=== PATIENT | female | born 1955 | race Caucasian/White ===

== ENCOUNTER → 2018-10-31 13:55 | Outpatient (CLI) | payer SELFPAY ==
[2018-11-05 12:35] LABS: HPV Reflexed? NOT INDICATED
== END ==
PROVIDERS: Visit Provider Obstetrics & Gynecology
DX: Z12.4 Encounter for screening for malignant neoplasm of cervix (principal)
CPT/HCPCS: 88175; G0145

== ENCOUNTER → 2019-07-23 08:10 | Outpatient (CLI) | payer SELFPAY ==
--- NOTE | 2019-07-23 08:24 | CT_ITS ---
STUDY: CT SOFT TISSUE NECK WITH CONTRAST REASON FOR EXAM: Female, 64 years old. Parotid cancer postop RADIATION DOSAGE (If Supplied By Facility): CTDIvol = ( 22.34 ) mGy, DLP = ( 641.6 ) mGycm TECHNIQUE: The patient was scanned in a multi-detector CT scanner. High resolution transaxial imaging was performed following intravenous administration of IV Isovue 300 75. Sagittal and coronal images were reconstructed. Individualized dose optimization techniques were used for this CT. COMPARISON: July 08, 2017 FINDINGS: Postsurgical changes in the right parotid space status post resection of tumor as per clinical history. No evidence for tumor recurrence or local adenopathy.. Normal bilateral business process expert spaces. Normal bilateral parapharyngeal spaces. Normal bilateral carotid spaces. Normal bilateral sublingual and submandibular glands and spaces. Normal visualized nasopharynx. Normal retropharyngeal space. Normal perivertebral space. Normal visualized bilateral faucial tonsils. The visualized tongue, tongue base and oropharynx are normal. The visualized cervical lymph nodes (levels I-) are within normal size limits, and maintain normal morphology. There is no demonstrated solid or cystic mass lesion. There is no abnormal contrast enhancement. Normal epiglottis, bilateral vallecula and hypopharynx. The pre-epiglottic and paraglottic adipose spaces are normal. Normal visualized bilateral piriform sinuses, aryepiglottic folds, vocal cords, and arytenoid-cricoid articulations. Normal subglottic trachea. Normal bilateral lobes of the thyroid gland. Normal visualized pulmonary apices. Small mucous retention cyst in left sphenoid sinus. Cervical spine demonstrates mild spondylosis No significant change since prior exam CT/Soft Tissue Neck WITH Contrast IMPRESSION: Status post resection of right parotid tumor without evidence for focal recurrence Electronically Signed: Pradeep Elam MD at 19:29 EDT , Service support ,
[2019-07-28 11:43] LABS: CREATININE FINGERSTICK 0.65 mg/dL (0.55-1.02); EGFR FINGERSTICK > 60 mL/min (>60)
== END ==
DX: R22.1 Localized swelling, mass and lump, neck (principal); C07 Malignant neoplasm of parotid gland
CPT/HCPCS: 70491; Q9967

== ENCOUNTER → 2020-03-01 16:07 | Outpatient (CLI) | payer MEDICARE, OTHER, SELFPAY ==
[2020-03-04 05:46] LABS: HPV APTIMA, High Risk Negative (Negative)
== END ==
PROVIDERS: Visit Provider Obstetrics & Gynecology
DX: Z12.4 Encounter for screening for malignant neoplasm of cervix (principal)
CPT/HCPCS: 87624; 88175; G0145

== ENCOUNTER → 2020-11-03 07:56 | Outpatient (CLI) | payer MEDICARE, OTHER, SELFPAY ==
--- NOTE | 2020-11-03 08:15 | RAD_ITS ---
STUDY: AIR-CONTRAST UPPER JUST SERIES. REASON FOR EXAM: Female, 65 years old. Hx of heartburn -- food gets stuck in distal esoph -- no swallowing problems -- CA tumor around parotid 6 years FLUOROSCOPY TIME (if supplied): ( 1 minute ) minutes/seconds. 25 images were obtained. TECHNIQUE: The patient ingested barium. Multiple images of the esophagus, stomach and duodenum were obtained. COMPARISON: None. FINDINGS: There is evidence of a tertiary contractions of the mid and distal esophagus. There is evidence of a large sliding hiatal hernia without gastroesophageal reflux. The remainder of the stomach and duodenum are unremarkable. RAD/Upper GI w/BA Swallow IMPRESSION: Tertiary contractions of the esophagus. Large sliding hiatal hernia without gastroesophageal reflux. Electronically Signed: Jorge Mandujano, at 9:40 EST , Service support ,
== END ==
PROVIDERS: Referring Provider Surgery; Visit Provider Surgery
DX: K21.9 Gastro-esophageal reflux disease without esophagitis (principal); K44.9 Diaphragmatic hernia without obstruction or gangrene
CPT/HCPCS: 74246

== ENCOUNTER 2020-11-08 05:25 | Day surgery (SDC) | payer MEDICARE, OTHER, SELFPAY ==
[2020-11-08] VITALS (9 sets, daily range): BP systolic 118–189; BP diastolic 61–110; PULSE 82–105; RESP 16; TEMP 36.3–36.9; O2SAT 93–100; BMI 30.2
--- NOTE | 2020-11-08 | IMM_PTH ---
PATIENT: CAREN WARREN LOC: EN U#:[id number] AGE/SX: 65/F ROOM: RE11/08/[address]: Dr. Rajesh Treviño MD : 1955 BED: DIS: 11/08/2020 SPEC #: [id number] RECD: 11/15/20 09:34 STATUS: TAMMIE REKaila #: [id number] JASIEL: 11/08/20 00:[address]: Rajesh Treviño DEPT: IMMUNOHISTOCHEMISTRY RECD BY: Sarah Umanzor Tissues: A - Stomach, NOS Procedures: H Pylori (initial) PHYSICIAN & INSTITUTION [place] [id number] SPECIMEN INFORMATION: Tissue Source: A - Antral biopsy Clinical Info: GERD Specimen Number: [id number] CPT code: 58219 METHODOLOGY: Deparaffinized sections of prefer/formalin-fixed tissue or PAP/DQ stained slides are incubated with monoclonal/polyclonal antibodies/oligonucleotide probes. Localization is made via biotin free immunoperoxidase method. Appropriate controls are performed and reacted as expected. Results on target cell population are indicated in the following table: RESULTS: ANTIBODY / CLONE RESULT Block A H Pylori (polyclonal) negative These tests were developed and their performance characteristics determined by [facility]. They may not have been cleared or approved by the U.S. Food and Drug Administration. The FDA has determined that such clearance or approval is not necessary. INTERPRETATION: A. Antral biopsy: Negative for Helicobacter pylori organisms. AM:henry 11/16/2020
--- NOTE | 2020-11-08 05:52 | HP.PCM_ITS ---
Problem List (1) Hiatal hernia Status: Acute History and Physical Date of Admission: 11/08/20 Intake Visit Reasons: dysphagia Chief Complaint: dysphagia Hospital Insurance Representative Required: No Is patient in pain?: No Allergies adhesive tape Allergy (Mild, Verified 10/27/20 09:37) rash Medications ascorbic acid (vitamin C) 100 mg tablet 100 mg PO DAILY 10/27/20 [History] aspirin 81 mg tablet,delayed release 81 mg PO DAILY 10/27/20 [History Confirmed 10/27/20] calcium carbonate 500 mg calcium (1,250 mg) tablet 500 mg PO BID 10/27/20 [History Confirmed 10/27/20] cholecalciferol (vitamin D3) 125 mcg (5,000 unit) capsule 125 mcg PO DAILY 10/27/20 [History Confirmed 10/27/20] lisinopril 10 mg tablet 10 mg PO DAILY tab 10/27/20 [History Confirmed 10/27/20] omeprazole 20 mg capsule,delayed release 40 mg PO DAILY cap 10/27/20 [History Confirmed 10/27/20] vit C,E,zinc,Ny-wwnza-9-lutein-zeaxanthin 250 mg-2.5 mg-0.5 mg capsule cap PO BID cap 10/27/20 [History] zinc 50 mg tablet 50 mg PO DAILY 10/27/20 [History Confirmed 10/27/20] Is last menstrual period known: No Post menopausal: Yes Patient : No PFSH Medical History (Updated 10/27/20 @ 10:[address] Rajesh Treviño MD) Hypertension (Chronic) Hiatal hernia (Acute) Acid reflux (Acute) Back problem (Acute) Surgical History (Updated 10/27/20 @ 09:36 by Savannah Dwyer) History of (Acute) History of tonsillectomy and adenoidectomy (Acute) History of 3 sections (Acute) History of colonoscopy (Acute ~2016) History of parotidectomy (Acute) History of reversal of tubal ligation (Acute) History of tubal ligation (Acute) Family History (Updated 10/27/20 @ 09:36 by Savannah Dwyer) Other Breast cancer Social History (Updated 10/27/20 @ 13:[address] Rajesh Treviño MD) Smoking Status: Never smoker HPI HPI HPI: CAREN WARREN, is a 65 F who presents to the office today for surgical consultation regarding gastroesophageal reflux disease, intermittent food obstruction, history of large hiatal hernia. The patient's son-in-law is Indra. 65-year-old female. She claims that 2 years ago she had chest discomfort. She states that she underwent evaluation in [facility]. She demonstrates to me the report of the chest CT scan done April 10, 2018 showing a large hiatal hernia with the majority of her stomach in her chest. She states however that she was never instructed of its presence. Recently she has increased trouble with heartburn indigestion and retrosternal discomfort. She has had 2 episodes of partial esophageal food bolus obstruction. Both of them fortunately spontaneously relieved. She takes Tums as needed now for epigastric pain and her [id number] who is a general surgeon in [place] advised that she take omeprazole 40 mg daily. She believes that this is improving her condition. She has changed her diet to using more moisture and taking small food bites. 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 Her colonoscopy by report is up-to-date. She was anticipating leaving for [place] November 12, 2020 for 2 months She has had previous abdominal surgery with having had 4 daughters. 1 by spontaneous vaginal delivery and 3 by . She also appears to have had a tubal reversal as well. This involves combination of infraumbilical midline incision and Pfannenstiel incision HPI HPI HPI: CAREN WARREN, is a 65 F who presents to the office today for ROS General General: No weight change, appetite, fatigue, colon cancer, breast cancer or weakness HEENT HEENT: No difficulty swallowing, eye injury, eye surgery, swollen glands or hoarseness Endo Endocrine: No thyroid disease, diabetes mellitus, thyroid cancer, Hair loss, heat intolerance or cold intolerance Musc Musculoskeletal: Yes back problems; no arthritis, rheumatoid arthritis, gout or joint pain Cardio Cardiovascular: Yes high blood pressure; no murmur, pacemaker, heart disease, atrial fibrillation, heart attack, heart stent, palpitations, shortness of breat with exertion or chest pain Psych Psychiatric: No depression, anxiety or hearing voices Resp Respiratory: Yes shortness of breath, Yes sleep apnea, No cough, No COPD, No asthma, No emphysema, No wheezing Gastro Gastrointestinal: No abdominal pain, No nausea or vomiting, No diarrhea, No constipation, No blood in stool, Yes acid reflux, No hemorrhoids, No ulcers, No gallbladder problem, No black,tarry stools Olivier Hematologic: No blood thinners, No blood disorders, No bleeding, No anemia, No blood clots Neuro Neurologic: No weakness Exam Const General: cooperative, comfortable, no acute distress Nutritional Appearance: obese Orientation: alert, awake, oriented x3 HENMT Head: normal to inspection Eyes General: appearance normal, both eyes and all related structures Neck Neck: normal visual inspection Resp Effort & Inspection: normal respiratory effort Auscultation: clear to auscultation bilaterally Cardio Rate: regular rate Rhythm: regular rhythm Heart Sounds: no murmurs GI Palpation: soft, no hepatosplenomegaly Other: Irregular scar infraumbilical midline incision. Well-healed Pfannenstiel incision. Musc Cervical Spine: normal cervical lordosis Skin General: no rashes or lesions noted Neuro General: alert, awake Cognition: normal cognition Extrem General: no calf tenderness Psych Affect: normal affect Assessment & Plan Problems 1. Hiatal hernia K44.9 2. Gastroesophageal reflux disease, unspecified whether esophagitis present K21.9 Plan 65-year-old female who by report 2 years ago was identified as having a large hiatal hernia with significant amount of stomach within within her chest. She was not made aware of that at that time. With the recent reflux and retrosternal pain and esophageal foreign body obstruction upon review of previous testing this has come to light. It is curious because 2 years ago when she had that CT scan she was being evaluated for retrosternal discomfort and had a cardiac work-up. I propose for the patient a upper GI contrast study. I then recommend proceeding with a esophagogastroduodenoscopy with possible biopsy. Careful measurement of esophageal length will need to be pursued. Finally I recommend then further evaluation with esophageal manometry. Based upon the results of this investigation I will then be able to make better recommendations for her as to whether we can proceed with repair locally or whether she would need to have tertiary referral. In the meantime she has been highly instructed to use small bite technique with eating with chewing her food well and using plenty of moisture. She is to remain on her omeprazole therapy. She has had an opportunity to ask and have questions answered. I very much appreciate the kind opportunity of assisting with her surgical care. Copy: Dr. Ricky Treviño M.D., F.A.C.S. I have re-examined the patient. There are no clinical changes since date of exam. Procedure Criteria Procedure Type: Elective COVID Risk Discussion: The surgeon/proceduralist and patient have discussed in detail the risk of exposure to and/or potential harm posed by the COVID-19 virus with having a surgery/procedure at this time versus the risk of delaying the surgery/procedure. It is not possible to know either the risk of delaying the surgery or procedure or chance of getting an infection with perfect accuracy, but a joint decision was made between the patient and the surgeon/proceduralist to proceed at this time with the scheduled surgery/procedure as indicated on the consent form.
[2020-11-08] MEDS: Lactated Ringers 1,000 ML 100 ML IV (06:08)
--- NOTE | 2020-11-08 06:30 | EGD_PTH ---
PATIENT: CAREN WARREN LOC: EN U#:[id number] AGE/SX: 65/F ROOM: RE11/08/[address]: Dr. Rajesh Treviño MD : 1955 BED: DIS: 11/08/2020 SPEC #: [id number] RECD: 11/08/20 12:02 STATUS: TAMMIE YESY #: [id number] JASIEL: 11/08/20 06:[address]: Rajesh Treviño DEPT: SURGICAL PATHOLOGY RECD BY: Socorro Hebert Tissues: A - Gastric mucous membrane B - Gastric mucous membrane Procedures: Surgery Specimen Level IV HEADER OPERATION: EGD (MOD) PRE-OP DIAGNOSIS: Hiatal hernia, GERD TISSUE SUBMITTED: A - Antral biopsy, B - GE junction biopsy MICROSCOPIC DIAGNOSIS A. Gastric antrum, biopsy: Chronic gastritis. B. Gastroesophageal junction, biopsy: Fragments of benign gastric mucosa. No evidence of inflammation. AM:henry 11/09/2020 MICROSCOPIC DESCRIPTION Slides are reviewed. GROSS DESCRIPTION A - Received in fixative is one container labeled with the patient's name and designated antral biopsy. The specimen consists of one irregular fragment of light gutierrez soft tissue that measures 0.4 x 0.4 x 0.1 cm. The specimen is totally submitted in one cassette. B - Received in fixative is one container labeled with the patient's name and designated GE junction biopsy. The specimen consists of two irregular fragments of light gutierrez soft tissue that in aggregate measure 0.6 x 0.4 x 0.1 cm. The specimen is totally submitted in one cassette. / SJ:rg 11/08/20 TC:3 CPT: 01161 x2
--- NOTE | 2020-11-08 06:44 | OP.EGD_ITS ---
Patient Name: Lolly Hanson Procedure Date: 11/08/2020 6:12 AM Date of : 1955 Age: 65 Procedure: Upper GI endoscopy Indications: Suspected esophageal reflux, Abnormal UGI series, Hiatal hernia, For therapy of hiatal hernia Providers: Rajesh Treviño MD Referring MD: Lady Fay Medicines: Midazolam 3 mg IV, Meperidine 75 mg IV Complications: No immediate complications. Procedure: Pre-Anesthesia Assessment: - Prior to the procedure, a History and Physical was performed, and patient medications and allergies were reviewed. The patient's tolerance of previous anesthesia was also reviewed. The risks and benefits of the procedure and the sedation options and risks were discussed with the patient. All questions were answered, and informed consent was obtained. Prior Anticoagulants: The patient has taken no previous anticoagulant or antiplatelet agents. ASA Grade Assessment: II - A patient with mild systemic disease. After reviewing the risks and benefits, the patient was deemed in satisfactory condition to undergo the procedure. After obtaining informed consent, the endoscope was passed under direct vision. Throughout the procedure, the patient's blood pressure, pulse, and oxygen saturations were monitored continuously. The gastroscope was introduced through the mouth, and advanced to the second part of duodenum. The upper GI endoscopy was accomplished without difficulty. The patient tolerated the procedure well. Moderate Sedation: Moderate (conscious) sedation was personally administered by the endoscopist. The following parameters were monitored: oxygen saturation, heart rate, blood pressure, and response to care. Total physician intraservice time was 10 minutes. Scope In: 6:31:13 AM Scope Out: 6:36:34 AM Total Procedure Duration Time 0 hours 5 minutes 21 seconds Findings: The Z-line was variable and was found 34 cm from the incisors. LA Grade A (one or more mucosal breaks less than 5 mm, not extending between tops of 2 mucosal folds) esophagitis with no bleeding was found 34 cm from the incisors. Biopsies were taken with a cold forceps for histology. A large hiatal hernia was present. Diffuse mildly erythematous mucosa without bleeding was found in the gastric antrum. Biopsies were taken with a cold forceps for histology. The examined duodenum was normal. Impression: - Z-line variable, 34 cm from the incisors. - LA Grade A reflux esophagitis. Biopsied. - Large hiatal hernia. - Erythematous mucosa in the antrum. Biopsied. - Normal examined duodenum. Recommendation: - Discharge patient to home. - Resume previous diet. - Continue present medications. - Telephone my office for pathology results in 1 week. - Perform routine esophageal manometry in 2 months. - Return to my office in 2 months. Pt. is leaving for [place] and will pursue manometry upon her return Procedure Code(s): --- Professional --- 18853, Esophagogastroduodenoscopy, flexible, transoral; with biopsy, single or multiple 01489, 59, Moderate sedation services provided by the same physician or other qualified health health care analyst performing the diagnostic or therapeutic service that the sedation supports, requiring the presence of an independent trained observer to assist in the monitoring of the patient's level of consciousness and physiological status; initial 15 minutes of intraservice time, patient age 5 years or older Diagnosis Code(s): --- Professional --- K22.8, Other specified diseases of esophagus K21.0, Gastro-esophageal reflux disease with esophagitis K44.9, Diaphragmatic hernia without obstruction or gangrene K31.89, Other diseases of stomach and duodenum R93.3, Abnormal findings on diagnostic imaging of other parts of digestive tract CPT copyright 2017 [employer]. All rights reserved. The codes documented in this report are preliminary and upon sustainability specialist review may be revised to meet current compliance requirements. Rajesh Treviño MD 11/08/2020 6:43:13 AM This report has been signed electronically. Number of Addenda: 0 Note Initiated On: 11/08/2020 6:12 AM
--- NOTE | 2020-11-08 06:44 | OP.CCLET_ITS ---
11/08/2020 Bacarter Fay Re : Upper GI endoscopy procedure for Lolly Hassanr Sumeet This procedure was performed on Sunday, November 08, 2020. My impressions and recommendations are as follows: Impressions : - Z-line variable, 34 cm from the incisors. - LA Grade A reflux esophagitis. Biopsied. - Large hiatal hernia. - Erythematous mucosa in the antrum. Biopsied. - Normal examined duodenum. Recommendations : - Discharge patient to home. - Resume previous diet. - Continue present medications. - Telephone my office for pathology results in 1 week. - Perform routine esophageal manometry in 2 months. - Return to my office in 2 months. Pt. is leaving for [place] and will pursue manometry upon her return My findings are described in the full procedure note, which is enclosed. If I can be of further assistance, please feel free to contact me at Doctor phone number(s): Work: . Sincerely, Rajesh Treviño MD 11/08/2020 6:43:13 AM This report has been signed electronically.
== END 2020-11-08 07:41 | disposition home or self-care (01) ==
LOC: EN 05:25 → AC 05:26
PROVIDERS: Visit Provider Surgery
PROC: (CPT 43239; principal; 2020-11-08 06:25)
DX: K29.50 Unspecified chronic gastritis without bleeding (principal); K22.8 Other specified diseases of esophagus; K21.00 Gastro-esophageal reflux disease with esophagitis, without bleeding; K44.9 Diaphragmatic hernia without obstruction or gangrene; K31.89 Other diseases of stomach and duodenum; R93.3 Abnormal findings on diagnostic imaging of other parts of digestive tract; Z79.82 Long term (current) use of aspirin; I10 Essential (primary) hypertension
CPT/HCPCS: 43239; 87426; 88305; 88342; 99152; C9803; J7120

== ENCOUNTER 2021-01-26 07:52 | Day surgery (SDC) | payer MEDICARE, OTHER, SELFPAY ==
[2020-11-08 05:52] VITALS: BMI 30.2
[2021-01-26] MEDS: Lidocaine Jelly 2% 20 ML Syringe (URO-JET) 20 APPLIC (08:15)
[2021-01-26 08:17] VITALS: BP 159/112; PULSE 63; RESP 16; TEMP 36.1; O2SAT 97
== END 2021-01-26 09:01 | disposition home or self-care (01) ==
LOC: EN 07:53
PROVIDERS: Visit Provider Surgery
PROC: F00ZJWZ Instrumental Swallowing and Oral Function Assessment using Swallowing Equipment (ICD-10-PCS; CPT 43235; principal; 2021-01-26 07:55)
DX: R13.10 Dysphagia, unspecified (principal)
CPT/HCPCS: 91010

== ENCOUNTER 2021-05-04 10:50 | Observation (INO) | payer MEDICARE, OTHER, SELFPAY ==
[2021-04-18 14:00] VITALS: BMI 31.0
--- NOTE | 2021-04-18 14:43 | RAD_ITS ---
STUDY: X-RAY CHEST REASON FOR EXAM: Female, 66 years old. PRE OP TECHNIQUE: PA and lateral views of the chest. COMPARISON: None. FINDINGS: The lungs are clear and expanded. There is no demonstrated pleural abnormality. Normal size heart. Large hiatal hernia. Normal visualized pulmonary arteries. Normal visualized aortic arch and descending thoracic aorta. Normal visualized thoracic spine. Normal visualized ribs, clavicles, and shoulders. There is no demonstrated abnormality of the visualized soft tissue structures of the upper abdomen. RAD/Chest PA and Lateral IMPRESSION: No active pulmonary disease. Large hiatal hernia. Electronically Signed: Tomi Neumann MD at 15:34 EDT Tel , Service support ,
--- NOTE | 2021-04-18 14:44 | EKG12_ITS ---
Test Reason : PRE OP Blood Pressure : / mmHG Vent. Rate : 075 BPM Atrial Rate : 075 BPM P-R Int : 142 ms QRS Dur : 080 ms QT Int : 382 ms P-R-T Axes : 021 005 014 degrees QTc Int : 426 ms Normal sinus rhythm Normal ECG Confirmed by WARREN REYES, SHAUNA ([id number]), index editor SHARITA BENEDICT ([id number]) on 04/19/2021 10:41:46 AM Referred By: Rajesh Treviño Confirmed By:SHAUNA KELLEY MD
[2021-05-04] VITALS (14 sets, daily range): BP systolic 113–156; BP diastolic 60–98; PULSE 66–86; RESP 16–18; TEMP 36.2–36.8; O2SAT 91–97; BMI 30.5
--- NOTE | 2021-05-04 06:36 | PCM.HP.BLA ---
History and Physical Date of Admission: 05/04/21 Intake Visit Reasons: [facility] [place] Chief Complaint: update h&p Technical Training Coordinator Required: No Is patient in pain?: No Allergies adhesive tape Allergy (Mild, Verified 04/18/21 14:01) rash Medications ascorbic acid (vitamin C) 100 mg tablet 100 mg PO DAILY 10/27/20 [History Confirmed 04/18/21] aspirin 81 mg tablet,delayed release 81 mg PO DAILY 10/27/20 [History Confirmed 04/18/21] calcium carbonate 500 mg calcium (1,250 mg) tablet 500 mg PO BID 10/27/20 [History Confirmed 04/18/21] cholecalciferol (vitamin D3) 125 mcg (5,000 unit) capsule 125 mcg PO DAILY 10/27/20 [History Confirmed 04/18/21] lisinopril 10 mg tablet 10 mg PO DAILY tab 10/27/20 [History Confirmed 04/18/21] omeprazole 20 mg capsule,delayed release 40 mg PO DAILY cap 10/27/20 [History Confirmed 04/18/21] vit C,E,zinc,Pv-vtapj-9-lutein-zeaxanthin 250 mg-2.5 mg-0.5 mg capsule cap PO BID cap 10/27/20 [History Confirmed 04/18/21] zinc 50 mg tablet 50 mg PO DAILY 10/27/20 [History Confirmed 04/18/21] biotin 2,500 mcg capsule 2,500 mcg PO DAILY 04/18/21 [History Confirmed 04/18/21] PFSH Medical History Acid reflux Back problem Hiatal hernia History of COVID-19 Hypertension Surgical History History of 3 sections History of History of colonoscopy (~2015) History of parotidectomy History of reversal of tubal ligation History of tonsillectomy and adenoidectomy History of tubal ligation Family History Other Breast cancer Social History Smoking Status: Never smoker HPI HPI HPI: CAREN WARREN, is a 66 F who presents to the office today for an update History ad physical for an upcoming elective procedure. She denies recent hospitalizations or illnesses since her last visit. She denies previous myocardial infraction, stroke or blood clots. She denies side effects or complications with anesthesia. She does note constipation with anesthesia and pain medications. She is on a PPI currently. Patient has made a full recovery since having COVID in December. She is back to walking 2 1/2 miles or biking 5-6 miles. She remains very active. Patient's previous history per Dr. Treviño: CAREN WARREN, is a 66 F who presents to the office today for ongoing surgical consultation regarding her sizable hiatal hernia. Today was a 30-minute [id number] consultative appointment with the patient and her in attendance. The patient has a sizable hiatal hernia. She has had a barium esophagram and an upper GI endoscopy. She is also had manometry. The manometry was difficult as the probe got coiled up within the hernia. There is felt to be adequate esophageal motility. The patient had taken a winter break in [place] subsequent to my testing. She now returns. Unfortunately while she was in [place] she contracted COVID-19. She had chest pressure achiness fever shortness of breath. Onset was January 03, 2021. She is still in her recovery phase. She is quite fatigued. The fever is resolved but she is dyspneic. She previously was walking a mile and 1/2 to 2 miles per day and cannot come close to that range. She did have some slight weight loss of up to 10 pounds. ROS General General: No weight change, appetite, fatigue, colon cancer, breast cancer or weakness HEENT HEENT: No difficulty swallowing, eye injury, eye surgery, swollen glands or hoarseness Endo Endocrine: No thyroid disease, diabetes mellitus, thyroid cancer, Hair loss, heat intolerance or cold intolerance Skin Skin: No rash or changing moles Breast Breast: No left breast lump, right breast lump, nipple discharge, breast pain, abnormal mammogram, abnormal US or breast enlargement Musc Musculoskeletal: No back problems, arthritis, rheumatoid arthritis, gout or joint pain Cardio Cardiovascular: Yes high blood pressure; No murmur, pacemaker, heart disease, atrial fibrillation, heart attack, heart stent, palpitations, shortness of breat with exertion or chest pain Psych Psychiatric: No depression, anxiety or hearing voices Resp Respiratory: No shortness of breath, No sleep apnea, No cough, No COPD, No asthma, No emphysema and No wheezing Gastro Gastrointestinal: No abdominal pain, No nausea or vomiting, No diarrhea, No constipation, No blood in stool, Yes acid reflux, No hemorrhoids, No ulcers, No gallbladder problem and No black,tarry stools Olivier Hematologic: No blood thinners, No blood disorders, No bleeding, No anemia and No blood clots Neuro Neurologic: No system reviewed and no additional complaints, except as documented, No as per HPI, No abnormal gait, No abnormal hearing, No abnormal movements, No abnormal speech, No behavioral changes, No burning sensations, No confusion, No convulsions, No disequilibrium, No dizziness, No localized weakness, No frequent falls, No headache(s), No lack of coordination, No loss of vision, No memory loss, No numbness, No other visual disturbances, No radicular pain, No restless legs, No sensory deficit, No syncope, No tingling, No tremor(s), No weakness and No other Exam Const General: cooperative, healthy appearing, comfortable and no acute distress HENMT Head: normal to inspection Eyes General: appearance normal, both eyes and all related structures Neck Neck: normal visual inspection Neck mass: No Resp Effort & Inspection: normal respiratory effort Auscultation: clear to auscultation bilaterally Cardio Rate: regular rate Rhythm: regular rhythm GI Inspection: normal to inspection and obesity Palpation: soft Auscultation: hyperactive bowel sounds Skin General: no rashes or lesions noted Neuro General: no focal motor deficits and CN's II-XI intact bilaterally Extrem General: normal to inspection Psych Appearance: grossly normal Affect: normal affect Assessment and Plan Assessment and Plan (1) Hiatal hernia: Status: Acute Plan - Sherri GARCIA, PA-C: Dr. Treviño will plan to perform a laparoscopic repair of hiatal hernia toupet wrap. Procedure details, risks and benefits have been reviewed. Patient has had the opportunity to ask and have questions answered. Patient verbally understands and agrees with the plan. Recommend patient to start Miralax regimen 2 days prior to her procedure to assist with constipation. She may continue daily aspirin. She will obtain CXR and EKG today. Discharge instructions have been provided for the patient. (2) Acid reflux: Status: Acute Qualifiers: Esophagitis presence: esophagitis presence not specified Qualified Code(s): K21.9 - Gastro-esophageal reflux disease without esophagitis Coding Level of Care Code No Charge Diagnoses Hiatal hernia K44.9 Acid reflux K21.9 Esophagitis presence: esophagitis presence not specified Comment Update H&P 04/18/21 1523<Electronically signed by Sherri GARCIA PA-C>Date Sherri GARCIA PA-C I have re-examined the patient. There are no clinical changes since date of exam.
[2021-05-04] MEDS: Lactated Ringers 1,000 ML 100 ML IV ×2 (06:48→08:11)
[2021-05-04 06:59] LABS: Prothrombin Time (Protime)PT. 12.7 SECONDS (11.7-14.9)
[2021-05-04 07:00] LABS: Partial Thromboplast Time 36.6 Seconds (24.1-36.2)
--- NOTE | 2021-05-04 07:02 | PCM.DC ---
Discharge Instructions Diet Discharge Diet: Light diet - advance as tolerated (if you have questions about your diet instructions, please talk to you doctor.) Activity Discharge Activity: May Not Drive (for 3-5 days or while taking narcotic pain medicine.) May shower in (days): 1 Lifting Restrictions: 10 pounds Additional Activity Instructions:: Liquid diet instructions as previously provided Dressing / Incision Call your doctor if your incision/area has: Continuous Slow Oozing, Sudden Increased Bleeding, Increased Pain/ Swelling, Increased Redness and Foul Smelling Discharge Call your doctor if you observe: Fever of 101 or Higher Suture Line Care: Avoid Pulling/Pushing and Avoid Pinching/Bending Additional Dressing/Incision Instructions:: Change or remove dressing in 4 days. Leave steri-strips in place for 1 week. Follow Up Care Please Follow Up With: Rajesh Treviño MD When: Call [phone] to make an appointment to be seen in about 10 days. Test Results: Test results from this visit will be discussed in further detail at your follow-up appointment, if applicable. Please resume all of your previous medicines as prescribed. I have vigorously encouraged continued use of your incentive spirometer and mobilization. Discharge Plan Admission Admit Date/Time: 05/04/21 10:50 Attending Provider: Rajesh Treviño Discharge Orders/Prescriptions Prescriptions: No Action lisinopril 10 mg tablet 10 mg PO DAILY RF: 0 omeprazole 20 mg capsule,delayed release(DR/EC) 40 mg PO DAILY RF: 0 calcium carbonate [Calcium 500] 500 mg calcium (1,250 mg) tablet 500 mg PO BID RF: 0 aspirin [Adult Low Dose Aspirin] 81 mg tablet,delayed release (DR/EC) 81 mg PO DAILY RF: 0 cholecalciferol (vitamin D3) 125 mcg (5,000 unit) capsule 125 mcg PO DAILY RF: 0 zinc 50 mg tablet 50 mg PO DAILY RF: 0 vit C,E,zinc,Os-umudl-9-lutein-zeaxanthin 250 mg-2.5 mg-0.5 mg capsule 250-2.5-0.5 mg capsule 1 cap PO BID RF: 0 ascorbic acid (vitamin C) 100 mg tablet 100 mg tablet 100 mg PO DAILY RF: 0 biotin 2,500 mcg capsule 2,500 mcg PO DAILY RF: 0 magnesium 200 mg Tablet 200 mg PO DAILY RF: 0
[2021-05-04] MEDS: Cefazolin 2 GM in 0.9% Normal Saline 100 ML IV (07:25)
--- NOTE | 2021-05-04 07:30 | HERN_PTH ---
PATIENT: CAREN WARREN LOC: MS3 U#:[id number] AGE/SX: 66/F ROOM: AZ322 RE05/04/[address]: Dr. Rajesh Treviño MD : 1955 BED: 1 DIS: 05/05/2021 SPEC #: [id number] RECD: 05/04/21 11:28 STATUS: TAMMIE YESY #: [id number] JASIEL: 05/04/21 07:[address]: Rajesh Treviño DEPT: SURGICAL PATHOLOGY RECD BY: Naomie Muñiz Tissues: HERNIA Procedures: Surgery Specimen Level II HEADER OPERATION: Laparoscopic repair of hiatal hernia with Toupet wrap PRE-OP DIAGNOSIS: GERD TISSUE SUBMITTED: Hernia sac MICROSCOPIC DIAGNOSIS Hiatal hernia, herniorrhaphy: Fragment of fibrofatty tissue with focal mild chronic inflammation. AM:henry 05/05/2021 MICROSCOPIC DESCRIPTION Slides are reviewed. GROSS DESCRIPTION Received in fixative is one container labeled with the patient's name and designated hernia sac. The specimen consists of a piece of soft tissue measuring 6 x 5 x 0.5 cm. No mass lesion is identified. Belt Dresser sections are submitted in two cassettes. / SJ:henry 05/04/21 TC:5 CPT: 65018
[2021-05-04] MEDS: Lubricating Jelly 60 GM Tube 30 GM TOPICAL (08:13)
[2021-05-04] MEDS: Bupivacaine 0.25% 30 ML Vial ×2 (10:32→10:43)
--- NOTE | 2021-05-04 10:51 | OP.PCM_ITS ---
Problems Associated Problem List Diagnoses (1) Hiatal hernia: (2) Acid reflux: Report of Operation Date of Procedure: 05/04/21 Pre-Operative Diagnosis: Symptomatic large hiatal hernia with esophageal dysphagia and reflux Post-Operative Diagnosis: Same Surgery/Procedure Performed:: Laparoscopic hiatal herniorrhaphy with laparoscopic toupet procedure, esophagogastroduodenoscopy Description of Surgical Findings:: Timeout and informed consent was obtained. 66-year-old female was taken to the operating placed upon the table underwent general endotracheal intubation esthesia Ancef 2 g were given intravenously. She was placed in the low lithotomy position on a beanbag. The abdomen sterilely prepped draped. [place] draping was used as well. Using a 5 mm Visiport technology in the right upper abdomen angled from the umbilicus I again Visiport access under direct visualization. The abdomen was insufflated with CO2 to a pressure of 10 mmHg pressure. A 10 liner port was placed in the left upper abdomen 2 more 5 mm ports placed in the left subcostal area 5 mm incision was made in the epigastric area and a Angel retractor was placed. The liver was elevated. It was nicely viable good exposure was achieved. Using noncrushing graspers a large component of the proximal stomach was evacuated from the mediastinum. A very large hernia sac encountered. The sac was incised at the epiphrenic ligament and careful all dissection was foreign leaving peritoneum on the ela. The sac was then completely inverted tediously and carefully. The stomach was densely adherent at the spleen and short gastrics areas and was folded back on itself. Using harmonic scalpel to transect the short gastrics using hemolock clips this was quite tedious and slow. A piece of fibrillar was placed there to further assist with hemostasis. Finally I was able identify both the right and left ela I was able to get circumferential control around the esophagus the posterior vagus clearly identified and preserved with the esophagus. [place] that the right pleura had been penetrated during this large sac dissection. The esophagus however was able to be circumferentially dissected free and nicely mobilized. A [place] drain was placed around the EG junction to assist with this. I mobilized the posterior epigastric fat pad at the GE junction as well. Now had clear visualization of the crura esophagus and reduced stomach. I approximated the crura using pledgeted sutures of 0 Ethibond. 4 separate sutures were required I placed a 46 [place] bougie and felt that I had good approximation. Then I took the fundus of the stomach wrapped it behind and secured the posterior part of that wrap to the diaphragmatic crural pair. I performed a toupet procedure using a 2-0 Ethibond secure the wrap on the right to the epiphrenic ligament the esophagus and the wrap portion of the stomach and then in a running fashion to the wall of the esophagus. Performed approximately 2 and half to 3 cm length securement. I then carefully opposed the main body of the fundus on the left knee portion of the wrap carefully measuring and estimating with the bougie in place. And then secured that part of the stomach to the anterior esophageal wall and in the supine traction on the other side compared to the epiphrenic ligament the esophagus and the stomach. I did that with a 2-0 Ethibond with corporeal knot tying and then in a running fashion secured the stomach to the wall of the esophagus. Secured that and on inspection I felt that I had a very nice 270 degree wrap. All appear to be nicely intact. I then performed a esophagogastroduodenoscopy separately dictated in provation but demonstrating no leak in the wrap intact. Excess fluid nerves aspirated free. The patient was placed in Trendelenburg position and gave the PEEP and full inspiratory breaths to help evacuate any mediastinal carbon dioxide. The Angel retractor had been removed by this time and the 10 mm port site had already been closed with his simple suture of 0 Vicryl with a [place] needle. Trochars were allowed to let the carbon dioxide escape well the positive pulmonary pressure was held. And the trochars were removed. Wound edges approximated opted for Monocryl subdermal stitches. Steri-Strips Telfa OpSite dressings applied. Sponge and instrument and needle counts were reported to the surgeon to be correct. Blood loss was minimal. She tolerated the procedure well no apparent complication initiate taken to the recovery room in satisfactory condition. Specimens included the hernia sac. I did resect that hernia sac off the anterior EG junction using harmonic scalpel. It was placed in a retrieval bag and exited during the procedure. Drains none. Blood loss minimal. Rajesh Treviño M.D., F.A.C.S. Surgeon: Rajesh Treviño Type of Anesthesia: General and Local Anesthesiologist: Cesar Gonzalez
--- NOTE | 2021-05-04 12:36 | SUR.PHASEI ---
AT 11:45, ORAL AIRWAY REMOVED
[2021-05-04] MEDS: Lactated Ringers 1,000 ML 60 ML IV (12:53)
[2021-05-04] MEDS: Ketorolac 15 MG/ML Vial IV (12:54)
[2021-05-04] MEDS: 0.9% Saline Lock 10 ML Syringe IV (14:17)
[2021-05-04] MEDS: Morphine 2 MG/ML Syringe IV ×2 (14:18→16:30)
--- NOTE | 2021-05-04 15:31 | PCM.PN.SRG ---
Subjective Subjective Patient is doing well. The shoulder pain has been assisted by the Toradol. Still has retrograde sternal discomfort. No significant abdominal pain Objective Data Objective Data Vital Signs: Vital Signs Temp Pulse Resp BP Pulse Ox 98.2 F 76 18 135/71 H 95 05/04/21 13:29 05/04/21 13:29 05/04/21 13:29 05/04/21 13:29 05/04/21 13:29 Oxygen Flow Rate (L/min) 2 Oxygen Delivery Method Nasal Cannula Weight: 177 lb 14.609 oz Body Mass Index (BMI) 30.5 Intake & Output: Intake and Output for Last 24 Hours 05/02/21 05/03/21 05/04/21 23:59 23:59 23:59 Intake Total 2109 Balance 2109 Lab / Micro Data Labs: Laboratory Results - last 24 hr 05/04/21 06:45: PT 12.7, INR 1.0, APTT 36.6 H Micro: Microbiology 05/04/21 06:23 Mucosa - Nose SARS-CoV-2 Antigen (Rapid) - Final Assessment & Plan Assessment/Plan (1) Acid reflux: QUALIFIERS: Esophagitis presence: esophagitis presence not specified Qualified Code(s): K21.9 - Gastro-esophageal reflux disease without esophagitis (2) Hiatal hernia: PLAN: Patient has been vigorously encouraged to utilize her incentive spirometer. She is encouraged to ambulate. We will initiate clear liquids. She still has ongoing need for pain medication and we will observe overnight. Rajesh Treviño M.D., F.A.C.S.
--- NOTE | 2021-05-04 16:31 | CPS ---
started by nursing
[2021-05-04] MEDS: Polyethylene Glycol 3350 17 GM PACKET 34 GM PO (16:33)
[2021-05-04] MEDS: HYDROcodone Bitartrate/Apap 5/325 Tablet PO (20:53)
[2021-05-05] MEDS: Ketorolac 15 MG/ML Vial IV ×3 (01:40→14:42)
[2021-05-05 02:47] VITALS: BP 106/63; PULSE 62; RESP 18; TEMP 36.7; O2SAT 95
[2021-05-05] MEDS: HYDROcodone Bitartrate/Apap 5/325 Tablet PO ×3 (03:05→11:06)
[2021-05-05] MEDS: Lactated Ringers 1,000 ML 30 ML IV (04:55)
--- NOTE | 2021-05-05 05:34 | PCM.PN.SRG ---
Subjective Subjective Patient still notes some retrosternal discomfort. She has been working some on her incentive spirometer. She has not yet been ambulating. She is tolerating clear liquids without difficulty. Objective Data Objective Data Vital Signs: Vital Signs Temp Pulse Resp BP Pulse Ox 98.1 F 62 18 106/63 95 05/05/21 02:47 05/05/21 02:47 05/05/21 02:47 05/05/21 02:47 05/05/21 02:47 Oxygen Flow Rate (L/min) 2 Oxygen Delivery Method CPAP Weight: 177 lb 14.609 oz Body Mass Index (BMI) 30.5 Intake & Output: Intake and Output for Last 24 Hours 05/03/21 05/04/21 05/05/21 23:59 23:59 23:59 Intake Total 2770 / 2770 1362 / 1362 Balance 2770 / 2770 1362 / 1362 Lab / Micro Data Labs: Laboratory Results - last 24 hr 05/04/21 06:45: PT 12.7, INR 1.0, APTT 36.6 H Micro: Microbiology 05/04/21 06:23 Mucosa - Nose SARS-CoV-2 Antigen (Rapid) - Final Physical Exam Resp normal respiratory effort and clear to auscultation bilaterally Resp Narrative: Breath sounds are symmetric and clear bilaterally. There is reasonable effort GI GI Narrative: Soft, nontender, bowel sounds present Assessment & Plan Assessment/Plan (1) Acid reflux: QUALIFIERS: Esophagitis presence: esophagitis presence not specified Qualified Code(s): K21.9 - Gastro-esophageal reflux disease without esophagitis (2) Hiatal hernia: PLAN: I have again reviewed discharge instructions with her. She already has hardcopy detailed dietary and activity instructions at home. I have strongly encouraged the patient to initiate ambulation, I had hoped that she would have already started this. Plan discharge today. Rajesh Treviño M.D., F.A.C.S.
[2021-05-05 08:20] VITALS: BP 116/98; PULSE 72; RESP 18; TEMP 36.7; O2SAT 98
[2021-05-05] MEDS: Lisinopril 10 MG Tablet PO (08:29)
[2021-05-05] MEDS: 0.9% Saline Lock 10 ML Syringe IV ×2 (08:29→14:42)
[2021-05-05] MEDS: Pantoprazole Sodium 40 MG Tablet PO (08:29)
[2021-05-05] MEDS: Magnesium Chloride 64 MG Delay Rel.Tablet 128 MG PO (08:29)
[2021-05-05] MEDS: Polyethylene Glycol 3350 17 GM PACKET 34 GM PO (08:29)
[2021-05-05 14:40] VITALS: BP 112/71; PULSE 62; RESP 18; TEMP 36.7; O2SAT 94
== END 2021-05-05 15:15 | disposition home or self-care (01) ==
LOC: SDC 12:39 → MS3 12:39
PROVIDERS: Anesthesiology; Admitting Provider Surgery; Referring Provider Surgery; Visit Provider Surgery
PROC: (CPT 43325; principal; 2021-05-04 07:10)
DX: K44.9 Diaphragmatic hernia without obstruction or gangrene (principal); K21.9 Gastro-esophageal reflux disease without esophagitis; I10 Essential (primary) hypertension; M19.90 Unspecified osteoarthritis, unspecified site; G25.81 Restless legs syndrome; I27.20 Pulmonary hypertension, unspecified; Z86.16 Personal history of COVID-19; Z79.899 Other long term (current) drug therapy; Z79.82 Long term (current) use of aspirin; Z87.19 Personal history of other diseases of the digestive system; Z01.818 Encounter for other preprocedural examination; R53.83 Other fatigue
CPT/HCPCS: 00790; 43280; 71046; 85610; 85730; 87426; 88302; 93005; 96374; 96375; 96376; 99218; 99251; J7120; A4216; G0378; G0379; G0463; J2405

== ENCOUNTER → 2021-08-17 07:47 | Outpatient (CLI) | payer MEDICARE, OTHER, SELFPAY ==
--- NOTE | 2021-08-17 07:50 | CT_ITS ---
STUDY: CT SOFT TISSUE NECK WITH CONTRAST REASON FOR EXAM: Female, 66 years old. LUMP ON NECK RADIATION DOSAGE (If Supplied By Facility): CTDIvol = ( 17.91 ) mGy, DLP = ( 505:48 ) mGycm TECHNIQUE: The patient was scanned in a multi-detector CT scanner. High resolution transaxial imaging was performed following intravenous administration of IV 75mL Isovue-370. Sagittal and coronal images were reconstructed. Individualized dose optimization techniques were used for this CT. COMPARISON: Comparison is made with prior study 07/23/2019. FINDINGS: Surgical clips are once again seen in the right parotid space in keeping with resection of prior tumor. Normal bilateral slip filler spaces. Normal bilateral parapharyngeal spaces. Normal bilateral carotid spaces. . Normal bilateral sublingual and submandibular glands and spaces. Normal visualized nasopharynx. Normal retropharyngeal space. Normal perivertebral space. Normal visualized bilateral faucial tonsils. The visualized tongue, tongue base and oropharynx are normal. There are minimally enlarged lymph nodes of the neck, with preservation of normal tobin architecture, consistent with a reactive lymph hyperplasia. There is no demonstrated solid or cystic mass lesion. There is no abnormal contrast enhancement. Normal epiglottis, bilateral vallecula and hypopharynx. The pre-epiglottic and paraglottic adipose spaces are normal. Normal visualized bilateral piriform sinuses, aryepiglottic folds, vocal cords, and arytenoid-cricoid articulations. Normal subglottic trachea. Normal bilateral lobes of the thyroid gland. Normal visualized pulmonary apices. Normal visualized paranasal sinuses. There is multilevel degenerative changes of the cervical spine. 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 No acute abnormality is seen. Electronically Signed: Jorge Mandujano MD at 13:12 EDT , Service support ,
[2021-08-18 07:02] LABS: CREATININE FINGERSTICK 0.69 mg/dL (0.55-1.02); EGFR FINGERSTICK > 60 mL/min (>60)
== END ==
DX: C07 Malignant neoplasm of parotid gland (principal); R22.1 Localized swelling, mass and lump, neck
CPT/HCPCS: 70491; Q9967

== ENCOUNTER 2022-01-08 07:58 | Outpatient (CLI) | payer MEDICARE, OTHER, SELFPAY ==
--- NOTE | 2022-01-08 08:01 | RAD_ITS ---
STUDY: AIR CONTRAST UPPER GI AND ESOPHAGUS SERIES REASON FOR EXAM: Female, 66 years old. Z98.890 - Other specified postprocedural states FLUOROSCOPY TIME (if supplied): (150 seconds) minutes/seconds. 13 images were obtained. TECHNIQUE: SINGLE CONTRAST AND AIR CONTRAST FLUOROSCOPIC IMAGES. COMPARISON: None. FINDINGS: The cervical esophagus demonstrates normal motility without aspiration. There is no stricture or extrinsic mass effect. No intraluminal polypoid mass is identified. The thoracic esophagus distends well without stricture or mucosal fold thickening. No mucosal ulcerations are identified. There is no extrinsic mass effect. There are no diverticula. There is evidence of a gastroesophageal reflux. There is narrowing at the gastroesophageal junction. The patient ingested a 12 mm tablet of barium without any difficulty. The stomach distends well without mucosal fold thickening or mucosal ulceration. There is no intraluminal mass. The duodenal bulb is freely distensible without deformity or ulceration. The duodenal sweep is normal in position and caliber. RAD/Upper GI w/BA Swallow IMPRESSION: Narrowing at the gastroesophageal junction. Gastroesophageal reflux. The patient ingested a 12 mm tablet of barium without any difficulty. Electronically Signed: Jorge Mandujano MD at 14:18 EDT ,
== END 2022-01-08 23:59 | disposition home or self-care (01) ==
LOC: RAD 07:58
PROVIDERS: Referring Provider Surgery; Visit Provider Surgery
DX: R13.10 Dysphagia, unspecified (principal); Z98.890 Other specified postprocedural states
CPT/HCPCS: 74246

== ENCOUNTER 2022-01-15 06:57 | Outpatient (CLI) | payer MEDICARE, OTHER, SELFPAY ==
--- NOTE | 2022-01-15 06:58 | CT_ITS ---
STUDY: CT CHEST WITHOUT CONTRAST REASON FOR EXAM: Female, 66 years old. History of prior hiatal hernia repair. RADIATION DOSAGE (If Supplied By Facility): CTDIvol = ( 15.98 ) mGy, DLP = ( 636.20 ) mGycm TECHNIQUE: Transaxial imaging was performed without the administration of intravenous contrast material. Multiplanar coronal and sagittal images were reformatted. Individualized dose optimization techniques were used for this CT. COMPARISON: None. FINDINGS: The lungs are normal. There is no demonstrated pleural abnormality. Normal heart and pericardium. There are multiple small lymph nodes within the mediastinum, which are normal in size and morphology most compatible with reactive lymph hyperplasia. Normal hilar regions. Normal unenhanced pulmonary arteries. Normal aorta arch and descending thoracic aorta. There are degenerative changes of the thoracic spine. Large hiatal hernia. The patient is status post CONCEPCION fundoplication. There is thickening at the level of the gastroesophageal junction. This may represent postoperative changes although endoscopic correlation is recommended. CT/Chest without Contrast IMPRESSION: Large hiatal hernia. Post CONCEPCION fundoplication with the thickening of the gastroesophageal junction. Electronically Signed: Jorge Mandujano MD at 15:07 EDT ,
== END 2022-01-15 23:59 | disposition home or self-care (01) ==
LOC: CT 06:57
PROVIDERS: Referring Provider Surgery; Visit Provider Surgery
DX: K44.9 Diaphragmatic hernia without obstruction or gangrene (principal); K21.9 Gastro-esophageal reflux disease without esophagitis; R10.13 Epigastric pain
CPT/HCPCS: 71250

== ENCOUNTER → 2022-03-06 | Outpatient (CLI) | payer MEDICARE, OTHER, SELFPAY ==
--- NOTE | 2022-03-06 14:14 | ECHOD_ITS ---
Reason For Study: SOB Procedure This was a 2D Doppler, Color Flow transthoracic echocardiogram. Exam performed in department. Left Ventricle Normal LV size. Left ventricular systolic function is normal. The estimated ejection fraction is 60 %. Stage 1 diastolic dysfunction. No regional wall motion abnormalities noted. Right Ventricle Normal RV size. Normal systolic function. Atria Normal left atrium. Normal right atrium. Mitral Valve Normal mitral valve. Mild (1+) eccentric mitral valve insufficiency. Tricuspid Valve Normal tricuspid valve. Mild tricuspid valve insufficiency. Pulmonary artery systolic pressure is 30 mmHg. Aortic Valve Normal aortic valve. Trisinus/trileaflet aortic valve. Pulmonic Valve Normal pulmonic valve. Great Vessels Normal aortic root. The pulmonary artery is normal size. Normal inferior vena cava. Pericardium/Pleural No pericardial effusion. MMode/2D Measurements & Calculations LVIDd: 4.2 cm IVSd: 0.95 cm Ao root diam: 2.4 cm LVIDs: 2.5 cm LVPWd: 0.89 cm RVDd: 3.2 cm FS: 40.9 % LAV(MOD-bp): 33.9 ml LVAd ap4: 20.8 cm2 LVAd ap2: 22.5 cm2 LAV(MOD-bp) Indexed: 18.8 ml/m2 LVLd ap4: 6.7 cm LVLd ap2: 7.3 cm LAV(MOD-sp2): 25.4 ml EDV(MOD-sp4): 54.5 ml EDV(MOD-sp2): 58.2 ml LAV(MOD-sp4): 43.0 ml EDV(sp4-el): 55.2 ml EDV(sp2-el): 59.0 ml LVAs ap4: 9.8 cm2 LVAs ap2: 11.9 cm2 LVLs ap4: 5.4 cm LVLs ap2: 6.2 cm ESV(MOD-sp4): 16.6 ml ESV(MOD-sp2): 19.2 ml ESV(sp4-el): 15.1 ml ESV(sp2-el): 19.3 ml EF(MOD-sp4): 69.5 % EF(MOD-sp2): 67.0 % EF(sp4-el): 72.6 % SV(MOD-sp4): 37.9 ml SV(MOD-sp2): 39.0 ml SV(sp4-el): 40.1 ml LA dimension(2D): 3.8 cm LA A4 area: 16.7 cm2 RA A4 area: 11.2 cm2 Doppler Measurements & Calculations MV E max srinivasan: 89.5 cm/sec Lat Peak E' Srinivasan: 7.5 cm/sec Med Peak E' Srinivasan: 7.2 cm/sec MV A max srinivasan: 102.7 cm/sec E/E' lat: 11.9 E/E' med: 12.4 MV E/A: 0.87 Ao V2 max: 146.3 cm/sec LV V1 max: 122.4 cm/sec PA V2 max: 91.3 cm/sec Ao max P.6 mmHg LV V1 max P.0 mmHg TR max srinivasan: 262.2 cm/sec TR max P.5 mmHg ECHO/Echo Complete Interpretation Summary Normal LV size. Left ventricular systolic function is normal. The estimated ejection fraction is 60 %. Mild (1+) eccentric mitral valve insufficiency. Stage 1 diastolic dysfunction. Ordering Physician: Telly Isaac Referring Physician: Telly Isaac Performed By: Mariya Dumont RDCS
== END | disposition home or self-care (01) ==
LOC: CVS 14:12
PROVIDERS: Referring Provider Internal Medicine Cardiovascular Disease; Visit Provider Internal Medicine Cardiovascular Disease
DX: Z01.810 Encounter for preprocedural cardiovascular examination (principal)
CPT/HCPCS: 93306

== ENCOUNTER 2023-06-25 08:15 | Day surgery (SDC) | payer MEDICARE, OTHER, SELFPAY ==
[2023-06-25] VITALS (7 sets, daily range): BP systolic 91–130; BP diastolic 35–81; PULSE 64–81; RESP 14–18; TEMP 36.2–36.6; O2SAT 92–99; BMI 27.3
[2023-06-25] MEDS: Lactated Ringers 1,000 ML 15 ML IV (08:46)
--- NOTE | 2023-06-25 09:00 | PCM.HP.BLA ---
History and Physical Date of Admission: 06/25/23 Visit Reasons: SELF REFERRED COLONOSCOPY Chief Complaint: self referred colonoscopy Is patient in pain?: No Allergies bacitracin [From Cortisporin] Allergy (Intermediate, Verified 05/28/23 13:31) Rashhydrocortisone [From Cortisporin] Allergy (Intermediate, Verified 05/28/23 13:31) Rashneomycin [From Cortisporin] Allergy (Intermediate, Verified 05/28/23 13:31) Rashpolymyxin B [From Cortisporin] Allergy (Intermediate, Verified 05/28/23 13:31) Rashadhesive tape Allergy (Mild, Verified 05/28/23 13:31) rashofloxacin [From Floxin] Allergy (Unknown, Verified 05/28/23 13:31) swellingcodeine Allergy (Verified 05/28/23 13:31) PT UNSURE OF REACTION Medications ascorbic acid (vitamin C) 100 mg tablet 100 mg PO DAILY 10/27/20 [History Confirmed 05/28/23] aspirin 81 mg tablet,delayed release (Adult Low Dose Aspirin) 81 mg PO DAILY 10/27/20 [History Confirmed 05/28/23] cholecalciferol (vitamin D3) 125 mcg (5,000 unit) capsule 125 mcg PO DAILY 10/27/20 [History Confirmed 05/28/23] vit C,E,zinc,Gy-oefbl-9-lutein-zeaxanthin 250 mg-2.5 mg-0.5 mg capsule 1 cap PO BID 10/27/20 [History Confirmed 05/28/23] biotin 2,500 mcg capsule 2,500 mcg PO DAILY 04/18/21 [History Confirmed 05/28/23] magnesium 200 mg tablet 200 mg PO DAILY 04/27/21 [History Confirmed 05/28/23] calcium carbonate 600 mg calcium (1,500 mg) tablet 1,200 mg PO DAILY 03/02/22 [History Confirmed 05/28/23] lisinopril 10 mg tablet See Rx Instructions PO BID 03/05/22 [History Confirmed 05/28/23] PFSH Medical History (Updated 05/28/23 @ 13:[address] Rajesh Treviño MD) Anxiety Arthritis Back problem Cancer of parotid gland Essential hypertension Gastric reflux Hiatal hernia History of COVID-19 History of diverticulitis Hx of fracture of wrist Low iron Non-smoker PRISCILLA on CPAP Paraesophageal hernia Restless legs Wears glasses Wears hearing aid Surgical History History of 3 sections History of History of colonoscopy (~2016) History of eye surgery History of myringotomy History of parotidectomy History of reversal of tubal ligation History of tonsillectomy and adenoidectomy History of tubal ligation Status post laparoscopic Yesika fundoplication (04/2021) Family History Mother CVA (cerebral vascular accident) Myocardial infarction Cancer melanoma HypertensionFather Diabetes Alzheimer's disease HypertensionOther Breast cancer Social History Smoking Status: Never smoker alcohol intake: never substance use type: does not use HPI HPI HPI: 68-year-old female presents to discuss a colonoscopy. I assisted her on May 04, 2021 with a laparoscopic hiatal hernia repair with a toupet. This failed and she had to have it redone by Dr. Mcallister. She has intermittent symptoms of GERD. Most apparently she has had bouts of profuse diarrhea. Previous colonoscopy at least 8 years ago. She does not notice any bright red blood per rectum or melena. Her will be pursuing an umbilical herniorrhaphy. ROS General General: No weight change, appetite, fatigue, colon cancer, breast cancer or weakness HEENT HEENT: No difficulty swallowing, eye injury, eye surgery, swollen glands or hoarseness Endo Endocrine: No thyroid disease, diabetes mellitus, thyroid cancer, Hair loss, heat intolerance or cold intolerance Skin Skin: No rash or changing moles Musc Musculoskeletal: No back problems, arthritis, rheumatoid arthritis, gout or joint pain Cardio Cardiovascular: Yes high blood pressure; No murmur, pacemaker, heart disease, atrial fibrillation, heart attack, heart stent, palpitations, shortness of breat with exertion or chest pain Psych Psychiatric: No depression, anxiety or hearing voices Resp Respiratory: No shortness of breath, No sleep apnea, No cough, No COPD, No asthma, No emphysema and No wheezing Gastro Gastrointestinal: Yes abdominal pain, No nausea or vomiting, Yes diarrhea, No constipation, No blood in stool, Yes acid reflux, No hemorrhoids, No ulcers, No gallbladder problem and No black,tarry stools Olivier Hematologic: No blood thinners, No blood disorders, No bleeding, No anemia and No blood clots Neuro Neurologic: No system reviewed and no additional complaints, except as documented, No as per HPI, No abnormal gait, No abnormal hearing, No abnormal movements, No abnormal speech, No behavioral changes, No burning sensations, No confusion, No convulsions, No disequilibrium, No dizziness, No localized weakness, No frequent falls, No headache(s), No lack of coordination, No loss of vision, No memory loss, No numbness, No other visual disturbances, No radicular pain, No restless legs, No sensory deficit, No syncope, No tingling, No tremor(s), No weakness and No other Exam Const General: cooperative, healthy appearing, comfortable and no acute distress Nutritional Appearance: average body habitus [facility] Head: normal to inspection Eyes General: appearance normal, both eyes and all related structures Neck Neck: normal visual inspection Chest Chest palpation & inspection: normal inspection of the chest Resp Effort & Inspection: normal respiratory effort Auscultation: clear to auscultation bilaterally Cardio Rate: regular rate Rhythm: regular rhythm GI Palpation: soft and no hepatosplenomegaly Musc Cervical Spine: normal cervical lordosis Skin General: no rashes or lesions noted Neuro General: patient alert, patient awake and patient oriented x3 Extrem General: no calf tenderness Psych Appearance: grossly normal Assessment and Plan Assessment and Plan (1) Paraesophageal hernia: Status: Acute (2) Gastroesophageal reflux disease due to diaphragmatic hernia: Status: Chronic (3) Diarrhea: Status: Acute Qualifiers: Diarrhea type: unspecified type Qualified Code(s): R19.7 - Diarrhea, unspecified Plan: Patient's had a previous laparoscopic repair and then had to have that redone. She currently has intermittent GERD symptoms. In addition she had some profuse abdominal bloating and pain and diarrhea. She has not had a colonoscopy for 8 years. I recommend to her a combined esophagogastroduodenoscopy with possible biopsy and very careful inspection of her laparoscopic toupet. I recommend to her a colonoscopy with possible biopsy or polypectomy. She is aware of technique, benefit, risk, alternatives. She has had an opportunity to ask and have questions answered. We will schedule procedure at her discretion. I appreciate the opportunity of assisting with her surgical care. Rajesh Treviño M.D., Ra. I have examined the patient and the H&P has been reviewed. There are no clinical changes since date of exam. Rajesh Treviño M.D., F.Gerson.Manisha.S.
--- NOTE | 2023-06-25 09:15 | IMM_PTH ---
PATIENT: CAREN WARREN LOC: EN U#:[id number] AGE/SX: 68/F ROOM: RE06/25/[address]: Dr. Rajesh Treviño MD : 1955 BED: DIS: 06/25/2023 SPEC #: [id number] RECD: 06/26/23 14:15 STATUS: TAMMIE YESY #: [id number] JASIEL: 06/25/23 09:[address]: Rajesh Treviño DEPT: IMMUNOHISTOCHEMISTRY RECD BY: Sarah Umanzor Tissues: A - Stomach, NOS Procedures: H Pylori (initial) PHYSICIAN & INSTITUTION [place] [id number] SPECIMEN INFORMATION: Tissue Source: A - Antrum Clinical Info: Paraesophageal hernia, GERD, diarrhea Specimen Number: [id number] CPT code: 34950 METHODOLOGY: Deparaffinized sections of prefer/formalin-fixed tissue or PAP/DQ stained slides are incubated with monoclonal/polyclonal antibodies/oligonucleotide probes. Localization is made via biotin free immunoperoxidase method. Appropriate controls are performed and reacted as expected. Results on target cell population are indicated in the following table: RESULTS: ANTIBODY / CLONE RESULT Block A H Pylori (polyclonal) negative These tests were developed and their performance characteristics determined by [facility]. They may not have been cleared or approved by the U.S. Food and Drug Administration. The FDA has determined that such clearance or approval is not necessary. The above immunohistochemical/dualISH markers are ordered and reviewed by the Pathologist. INTERPRETATION: A. Antrum, biopsy: Negative for Helicobacter pylori organisms. FILIPPO:henry 06/27/2023
--- NOTE | 2023-06-25 09:15 | COLBX_PTH ---
PATIENT: CAREN WARREN LOC: EN U#:[id number] AGE/SX: 68/F ROOM: RE06/25/[address]: Dr. Rajesh Treviño MD : 1955 BED: DIS: 06/25/2023 SPEC #: [id number] RECD: 06/25/23 14:21 STATUS: TAMMIE HAYWARD #: [id number] JASIEL: 06/25/23 09:[address]: Rajesh Treviño DEPT: SURGICAL PATHOLOGY RECD BY: Naomie Muñiz Tissues: A - COLON BIOPSY B - Esophagus, NOS C - Esophagus, NOS D - COLON BIOPSY Procedures: Surgery Specimen Level IV HEADER OPERATION: Colonoscopy, EGD PRE-OP DIAGNOSIS: Paraesophageal hernia, GERD, diarrhea TISSUE SUBMITTED: A - Antrum biopsy for H. pylori and path, B - Distal esophagus biopsy, C - Mid esophagus biopsy, D - Random colonic biopsy MICROSCOPIC DIAGNOSIS A. Antrum, biopsy: Mild gastritis. See microscopic description and comment. B. Distal esophagus, biopsy: Fragments of benign squamous epithelium. C. Mid esophagus, biopsy: A fragment of benign squamous epithelium. D. Colon, random biopsy: Fragments of colonic mucosa, no pathologic diagnosis. SJ:rg 06/27/2023 COMMENT A. The results of immunohistochemistry for Helicobacter pylori will be reported separately ([id number]). MICROSCOPIC DESCRIPTION Slides are reviewed. A. The specimen shows fragments of gastric mucosa with chronic inflammatory cell infiltrates in the lamina propria consisting of lymphocytes and plasma cells, consistent with mild chronic gastritis. GROSS DESCRIPTION A - Received in fixative is one container labeled with the patient's name and designated antrum biopsy. The specimen consists of one irregular fragment of light gutierrez soft tissue that measures 0.3 x 0.3 x 0.1 cm. The specimen is totally submitted in one cassette. B - Received in fixative is one container labeled with the patient's name and designated distal esophagus biopsy. The specimen consists of multiple irregular fragments of light gutierrez soft tissue that in aggregate measure 0.6 x 0.3 x 0.1 cm. The specimen is totally submitted in one cassette. C - Received in fixative is one container labeled with the patient's name and designated mid esophagus biopsy. The specimen consists of one irregular fragment of light gutierrez soft tissue that measures 0.2 x 0.2 x 0.1 cm. The specimen is totally submitted in one cassette. D - Received in fixative is one container labeled with the patient's name and designated random colonic biopsy. The specimen consists of multiple irregular fragments of light gutierrez soft tissue that in aggregate measure 1.5 x 0.4 x 0.1 cm. The specimen is totally submitted in one cassette. / SJ:rg 06/26/2023 TC:3 CPT: 23084 x4
--- NOTE | 2023-06-25 10:29 | OP.EGD_ITS ---
Patient Name: Lolly Hanson Procedure Date: 06/25/2023 9:43 AM Date of : 1955 Age: 68 Procedure: Upper GI endoscopy Indications: Heartburn Providers: Rajesh Treviño MD Medicines: See the Anesthesia note for documentation of the administered medications Complications: No immediate complications. Procedure: Pre-Anesthesia Assessment: - Prior to the procedure, a History and Physical was performed, and patient medications and allergies were reviewed. The patient's tolerance of previous anesthesia was also reviewed. The risks and benefits of the procedure and the sedation options and risks were discussed with the patient. All questions were answered, and informed consent was obtained. Prior Anticoagulants: The patient has taken no anticoagulant or antiplatelet agents. ASA Grade Assessment: II - A patient with mild systemic disease. After reviewing the risks and benefits, the patient was deemed in satisfactory condition to undergo the procedure. After obtaining informed consent, the endoscope was passed under direct vision. Throughout the procedure, the patient's blood pressure, pulse, and oxygen saturations were monitored continuously. The colonoscope was introduced through the mouth, and advanced to the second part of duodenum. The upper GI endoscopy was accomplished without difficulty. The patient tolerated the procedure well. Scope In: 9:55:36 AM Scope Out: 10:01:36 AM Total Procedure Duration Time 0 hours 6 minutes 0 seconds Findings: The lumen of the middle third of the esophagus and lower third of the esophagus was mildly dilated. Biopsies were taken with a cold forceps for histology. Diffuse moderate inflammation characterized by linear erosions was found in the gastric antrum. Biopsies were taken with a cold forceps for histology. Evidence of a Toupet fundoplication was found in the gastric fundus. The wrap appeared loose. The examined duodenum was normal. Impression: - Dilation in the middle third of the esophagus and in the lower third of the esophagus. Biopsied. - Acute chronic gastritis. Biopsied. - A Toupet fundoplication was found. The wrap appears loose. - Normal examined duodenum. Recommendation: - Discharge patient to home. - Resume previous diet. - Continue present medications. - Telephone my office for pathology results in 1 week. Office appears mildly dilated. EG junction at approximately 38 cm. The wrap appears intact just slightly loose. No clinical evidence of reflux changes on the distal esophagus. Active gastritis identified. The patient is not currently on acid reducing medications. Will await biopsy results prior to prescribing potential treatment. I do not recommend any additional redo surgery on her wrap as the distal esophagus actually appears to be quite unremarkable. Procedure Code(s): --- Professional --- 01485, Esophagogastroduodenoscopy, flexible, transoral; with biopsy, single or multiple Diagnosis Code(s): --- Professional --- K22.89, Other specified disease of esophagus K29.00, Acute gastritis without bleeding K29.50, Unspecified chronic gastritis without bleeding Z98.890, Other specified postprocedural states R12, Heartburn CPT copyright 2021 [employer]. All rights reserved. The codes documented in this report are preliminary and upon reconciliation clerk review may be revised to meet current compliance requirements. Rajesh Treviño MD 06/25/2023 10:29:01 AM This report has been signed electronically. Number of Addenda: 0 Note Initiated On: 06/25/2023 9:43 AM
--- NOTE | 2023-06-25 10:32 | OP.COLON_ITS ---
Patient Name: Lolly Hanson Procedure Date: 06/25/2023 10:01 AM Date of : 1955 Age: 68 Procedure: Colonoscopy Indications: Generalized abdominal pain Providers: Rajesh Treviño MD Patient Profile: Last Colonoscopy: date unknown. Complications: No immediate complications. Procedure: Pre-Anesthesia Assessment: - Prior to the procedure, a History and Physical was performed, and patient medications and allergies were reviewed. The patient's tolerance of previous anesthesia was also reviewed. The risks and benefits of the procedure and the sedation options and risks were discussed with the patient. All questions were answered, and informed consent was obtained. Prior Anticoagulants: The patient has taken no anticoagulant or antiplatelet agents. ASA Grade Assessment: II - A patient with mild systemic disease. After reviewing the risks and benefits, the patient was deemed in satisfactory condition to undergo the procedure. After I obtained informed consent, the scope was passed under direct vision. Throughout the procedure, the patient's blood pressure, pulse, and oxygen saturations were monitored continuously. The colonoscope was introduced through the anus and advanced to the cecum, identified by appendiceal orifice and ileocecal valve. The colonoscopy was performed without difficulty. The patient tolerated the procedure well. The quality of the bowel preparation was good. The ileocecal valve and the appendiceal orifice were photographed. Scope In: 10:02:35 AM Scope Withdrawal Time 0 hours 13 minutes 25 seconds Scope Out: 10:22:18 AM Total Procedure Duration Time 0 hours 19 minutes 43 seconds Findings: Hemorrhoids were found on perianal exam. Multiple diverticula were found in the sigmoid colon and descending colon. The exam was otherwise without abnormality. Biopsies for histology were taken with a cold forceps from the entire colon for evaluation of microscopic colitis. Impression: - Hemorrhoids found on perianal exam. - Diverticulosis in the sigmoid colon and in the descending colon. - The examination was otherwise normal. - Biopsies were taken with a cold forceps from the entire colon for evaluation of microscopic colitis. Recommendation: - Discharge patient to home. - Resume previous diet. - Continue present medications. - Repeat colonoscopy in 10 years for screening purposes. - Telephone my office for pathology results in 1 week. I made a concerted effort to try to intubate the terminal ileum however the valve would not release. We will await random biopsies looking for potential microcytic colitis which could be contributing to her diarrhea symptoms. Procedure Code(s): --- Professional --- 45610, Colonoscopy, flexible; with biopsy, single or multiple Diagnosis Code(s): --- Professional --- K64.9, Unspecified hemorrhoids R10.84, Generalized abdominal pain K57.30, Diverticulosis of large intestine without perforation or abscess without bleeding CPT copyright 2021 [employer]. All rights reserved. The codes documented in this report are preliminary and upon glue drier operator review may be revised to meet current compliance requirements. Rajesh Treviño MD 06/25/2023 10:31:59 AM This report has been signed electronically. Number of Addenda: 0 Note Initiated On: 06/25/2023 10:01 AM
== END 2023-06-25 11:14 | disposition home or self-care (01) ==
LOC: EN 08:19 → AC 08:20
PROVIDERS: Visit Provider Surgery
PROC: 0DJD8ZZ Inspection of Lower Intestinal Tract, Via Natural or Artificial Opening Endoscopic (ICD-10-PCS; CPT 45378; principal; 2023-06-25 09:10)
DX: K44.9 Diaphragmatic hernia without obstruction or gangrene (principal); K21.9 Gastro-esophageal reflux disease without esophagitis; K29.00 Acute gastritis without bleeding; R10.84 Generalized abdominal pain; K64.9 Unspecified hemorrhoids; R19.7 Diarrhea, unspecified; K57.30 Diverticulosis of large intestine without perforation or abscess without bleeding; I10 Essential (primary) hypertension; K29.50 Unspecified chronic gastritis without bleeding; Z98.890 Other specified postprocedural states; K22.89 Other specified disease of esophagus
CPT/HCPCS: 43239; 45380; 88305; 88342; J7120; J2405